=== PATIENT | female | born 1985 | race Caucasian/White ===

== ENCOUNTER 2018-02-25 21:41 | Emergency (ER) | payer SELFPAY ==
[~2018-02-25] VITALS: Ht 165.1 cm; Wt 78.6 kg
[2018-02-25 22:45] LABS: CARBON DIOXIDE (BICARBONATE) 29.1 MEQ/L (20-31); HEMATOCRIT 43.2 % (36.0-46.0); HEMOGLOBIN 15.1 G/DL (11.9-15.5); MCH 31.2 PG (29.0-34.0); MCV 89.3 FL (83-99); PLATELET COUNT 311 K/uL (156-360); RBC DIS.WIDTH-CV 12.6 % (11.8-14.6); RBC DIS.WIDTH-SD 41.4 % (39-53); RED BLOOD COUNT 4.84 M/uL (3.80-5.20); WHITE BLOOD COUNT 10.7 K/uL (4.1-10.2)
[2018-02-25 22:51] LABS: CHLORIDE 107 mEq/L (99-109); POTASSIUM 3.7 mEq/L (3.7-5.4); SODIUM 143 mEq/L (136-147)
[2018-02-25 22:53] LABS: GLUCOSE 101 mg/dL (70-99)
[2018-02-25 22:58] LABS: UREA NITROGEN (BUN) 10 mg/dL (9-23)
[2018-02-25 23:04] LABS: GFR ESTIMATE (CALCULATED) > 59 mL/min/
[2018-02-25] MEDS ORDERED: HYCODAN SYRUP480 ML PO (23:39)
[2018-02-25] MEDS ORDERED: ZITHROMAX Z-PA250 MG PO (23:39)
[2018-02-25] MEDS ORDERED: PREDNISONE50 MG PO (23:39)
[2018-02-26 00:18] VITALS: BP 113/67
== END 2018-02-26 00:21 | disposition home or self-care (01) ==
LOC: EME 21:41 → EDBD 21:41 → EME 02-26 00:21
PROVIDERS: Emergency Medicine
DX: J20.9 Acute bronchitis, unspecified (principal); J45.909 Unspecified asthma, uncomplicated; R59.0 Localized enlarged lymph nodes; F41.9 Anxiety disorder, unspecified; F32.9 Major depressive disorder, single episode, unspecified; F17.200 Nicotine dependence, unspecified, uncomplicated; Z85.41 Personal history of malignant neoplasm of cervix uteri
CPT/HCPCS: 71046; 80048; 82803; 85027; 87651 90; 94640; 99281; 99285; J7512